=== PATIENT | female | born 1970 | race African-American/Black ===

== ENCOUNTER → 2018-07-30 | Outpatient (CLI) | payer OTHER ==
--- NOTE | 2018-07-30 12:19 | Diagnostic Imaging Report ---
EXAMINATION: CHEST 2 VIEWS INDICATION: \S\ANNUAL PHYSICAL EXAM COMPARISON: None FINDINGS: PA and lateral views TUBES and LINES: None. LUNGS: Lungs are well inflated. Lungs are clear. There is no evidence of pneumonia or pulmonary edema. PLEURA: No pleural effusion or pneumothorax. HEART AND MEDIASTINUM: The cardiomediastinal silhouette is unremarkable. BONES AND SOFT TISSUES: No acute osseous lesion. Soft tissues are unremarkable. UPPER ABDOMEN: No free air under the diaphragm. IMPRESSION: No acute thoracic abnormality. Signed by: Dr. Livia Salinas M.D. on 07/30/2018 12:15 PM
== END ==
LOC: MAMMO 10:52
PROVIDERS: ATTEND Internal Medicine
DX: Z00.00 Encounter for general adult medical examination without abnormal findings (principal); Z12.31 Encounter for screening mammogram for malignant neoplasm of breast
CPT/HCPCS: 71046; 77067

== ENCOUNTER → 2019-05-13 | Outpatient (CLI) | payer OTHER ==
--- NOTE | 2019-05-13 12:03 | Diagnostic Imaging Report ---
EXAMINATION: ANKLE 3+ VIEWS LEFT INDICATION: Left ankle strain COMPARISON: None FINDINGS: 3 views of the left ankle demonstrate no acute fracture or dislocation. The ankle mortise is intact and symmetric. No ankle joint effusion. No substantial degenerative changes. The soft tissues appear unremarkable. IMPRESSION: No acute osseous injury. Signed by: Celeste Perry MD on 05/13/2019 11:59 AM
== END ==
LOC: RAD 11:15
PROVIDERS: ATTEND Internal Medicine
DX: S96.912A Strain of unspecified muscle and tendon at ankle and foot level, left foot, initial encounter (principal)

== ENCOUNTER → 2019-06-24 | Outpatient (CLI) | payer OTHER ==
--- NOTE | 2019-06-24 16:19 | Diagnostic Imaging Report ---
TECHNIQUE: Magnetic resonance imaging of the RIGHT KNEE was performed WITHOUT injected contrast. HISTORY: Right knee pain COMPARISON: None available. FINDINGS: LIGAMENTS AND TENDONS: ACL: Intact PCL: Intact Collateral ligaments: Intact Iliotibial band: Unremarkable Popliteal tendon: Intact Extensor mechanism: Intact JOINT: Menisci: Medial: Intact Lateral: Intact Articular Cartilage: Medial Compartment: No focal defect. Lateral Compartment: No focal defect. Patellofemoral Compartment: Partial-thickness cartilage loss with areas of full-thickness fissuring of the trochlea. Subchondral/cystic change. Joint Fluid: The amount of fluid within the joint is within physiologic limits. BONE: No focal or infiltrative bone marrow replacing abnormality. No acute fracture. SOFT TISSUES: Otherwise, unremarkable. IMPRESSION: Patellofemoral compartment predominant cartilage loss with areas of full-thickness fissuring of the trochlea. No acute ligamentous or meniscal abnormality. Signed by: Dr. Trent Bell M.D. on 06/24/2019 4:16 PM
--- NOTE | 2019-06-24 16:22 | Diagnostic Imaging Report ---
TECHNIQUE: Magnetic resonance imaging of the RIGHT ANKLE was performed WITHOUT injected contrast. COMPARISON: None available. HISTORY: Right ankle pain FINDINGS: LIGAMENTS: Medial Complex: Deltoid complex intact. Lateral Complex: Tibiofibular, talofibular, and calcaneofibular ligaments intact. TENDONS: Medial: Intact Lateral: Intact Anterior: Intact Achilles: Tendinopathy most prominent within the watershed zone. BONES: No focal or infiltrative bone marrow replacing abnormality. No acute fracture or osteonecrosis. JOINTS: Cartilage: No focal defect is identified involving the tibiotalar joint. Other: Fluid within the joints is within physiologic limits. SOFT TISSUES: Otherwise, unremarkable. IMPRESSION: Achilles tendinopathy centered within the watershed zone. No tear. Signed by: Dr. Trent Bell M.D. on 06/24/2019 4:18 PM
== END ==
LOC: MRI 14:46
PROVIDERS: ATTEND Specialist
DX: S83.241A Other tear of medial meniscus, current injury, right knee, initial encounter (principal); S86.011A Strain of right Achilles tendon, initial encounter